=== PATIENT | female | born 1945 | race Caucasian/White ===

== ENCOUNTER 2019-02-06 20:58 | Emergency (ER) | payer OTHER ==
[~2019-02-06] VITALS: Ht 160 cm; Wt 54.4 kg
[2019-02-06] MEDS ORDERED: ESCI10 PO (21:28)
[2019-02-06] MEDS ORDERED: TRAZ50 PO (21:28)
== END 2019-02-06 22:33 | disposition home or self-care (01) ==
LOC: ER 20:58
DX: S61.216A Laceration without foreign body of right little finger without damage to nail, initial encounter (principal); Z23 Encounter for immunization; Z79.899 Other long term (current) drug therapy; W01.0XXA Fall on same level from slipping, tripping and stumbling without subsequent striking against object, initial encounter
CPT/HCPCS: 12001; 90471; 90714; 99282-25

== ENCOUNTER 2022-01-03 12:07 | Day surgery (SDC) | payer OTHER ==
[~2022-01-03] VITALS: Ht 160 cm; Wt 51.5 kg
[~2022-01-03 12:07] MED LIST: ALENDRONATE SOD35 MG PO; CALCIUM 600 MG1 EA19 PO; Cyclobenzaprine5 MG PO; DIPH25; ESCI10 PO; MELA3 PO; METO25ER PO; MULVITA PO; PYRI100 PO; TOCO1000 PO; TRAZ50 PO; TURMERIC500 M2 PO; VITAMIN D3-ALO1 EACH PO; Vitamin B-12100 MCG PO; ZOLOFT25 MG PO; ZYRTEC10 M4 PO
--- NOTE | 2022-01-03 13:06 | NUR ---
01/03/22 1306 Ana Blackwell History, Chart, Medications and Allergies reviewed before start of procedure. Patient confirms NPO status and agrees with scheduled surgery. 3-LEAD EKG REVIEWED WITH PHYSICIAN PRIOR TO START OF PROCEDURE. MONITOR INTACT WITH CONTINUOUS PULSE OXIMETRY AND INTERMITTENT BP. PATIENT DETERMINED TO BE ASA APPROPRIATE FOR PROPOFOL SEDATION PRIOR TO START OF PROCEDURE BY .
--- NOTE | 2022-01-03 14:18 | NUR ---
PT SITTING UP IN BED, REPOSITIONING SELF IN BED. PT REQUESTED AND TOLERATING PO FLUIDS AND FOOD. REQUESTING TO GO HOME.
--- NOTE | 2022-01-03 14:43 | NUR ---
Patient up to Ambulate independently. Gait steady. Discharge instructions reviewed with patient. Patient verbalizes understanding. Copy given to patient to take home. Patient States Post-Procedure ride home has been arranged. Discharged via wheelchair to private car for ride home. ALL BELONGINGS RETURNED TO PATIENT THAT [facility].
== END 2022-01-03 22:51 | disposition home or self-care (01) ==
LOC: ORSCMMR 12:07
PROVIDERS: Student in an Organized Health Care Education/Training Program
PROC: 0DBH8ZX Excision of Cecum, Via Natural or Artificial Opening Endoscopic, Diagnostic (ICD-10-PCS; principal; 2022-01-03 13:30)
DX: K59.09 Other constipation (principal); K63.5 Polyp of colon; K57.30 Diverticulosis of large intestine without perforation or abscess without bleeding; F41.9 Anxiety disorder, unspecified; I48.91 Unspecified atrial fibrillation; I10 Essential (primary) hypertension; F43.10 Post-traumatic stress disorder, unspecified; Z79.899 Other long term (current) drug therapy
CPT/HCPCS: 88305; J2704; J7120

== ENCOUNTER 2022-11-23 14:55 | Emergency (ER) | payer OTHER ==
[~2022-11-23] VITALS: Ht 160 cm; Wt 56.7 kg
[2022-11-23] MEDS ORDERED: HYDR1TAB94 PO (18:07)
== END 2022-11-23 19:00 | disposition home or self-care (01) ==
LOC: ER 14:55
DX: S42.202A Unspecified fracture of upper end of left humerus, initial encounter for closed fracture (principal); W18.30XA Fall on same level, unspecified, initial encounter; Z79.899 Other long term (current) drug therapy; S42.212A Unspecified displaced fracture of surgical neck of left humerus, initial encounter for closed fracture
CPT/HCPCS: 73030; 73060; 99283-25; A9270

== ENCOUNTER 2024-08-23 15:17 | Emergency (ER) | payer OTHER ==
[~2024-08-23] VITALS: Ht 157.5 cm; Wt 56.2 kg
[~2024-08-23 15:17] MED LIST changes: +HYDR1TAB94 PO
[2024-08-23] MEDS ORDERED: OxyCODONE 5 mg/Acetamin 325 mg TABLET PO ONE (17:45)
[2024-08-23] MEDS ORDERED: Ketorolac Tromethamine 15mg Vial IM ONE (17:45)
[2024-08-23] MEDS ORDERED: IBUP600 PO (17:49)
[2024-08-23] MEDS ORDERED: ACET500 PO (17:49)
[2024-08-23] MEDS ORDERED: PERCOCET 10-321 EA13 PO (17:50)
[2024-08-23] MEDS ORDERED: Ketorolac Tromethamine 15mg Vial IV ONE (17:50)
[2024-08-23 18:06] VITALS: BP 179/76
== END 2024-08-23 18:06 | disposition home or self-care (01) ==
LOC: ER 15:17
DX: S82.854A Nondisplaced trimalleolar fracture of right lower leg, initial encounter for closed fracture (principal); W54.1XXA Struck by dog, initial encounter; Z79.899 Other long term (current) drug therapy; Z91.011 Allergy to milk products; Z91.048 Other nonmedicinal substance allergy status
CPT/HCPCS: 73610; 96374; 99283-25; A9270; J1885

== ENCOUNTER 2024-10-10 06:17 | Day surgery (SDC) | payer OTHER ==
[~2024-10-10] VITALS: Ht 157.5 cm; Wt 56.6 kg
[~2024-10-10 06:17] MED LIST changes: +ACET500 PO; +IBUP600 PO; +PERCOCET 10-321 EA13 PO
[2024-10-10] MEDS ORDERED: Rocuronium Bromide 10 MG/ML 5ML Injection IV ONE (06:20)
[2024-10-10] MEDS ORDERED: propofoL 20 ML IV ONE (06:20)
[2024-10-10] MEDS ORDERED: Ondansetron HCl 2 MG / ML 2ML Vial ONE (06:20)
[2024-10-10] MEDS ORDERED: Dexamethasone Sod Phos 10 MG/ML 1ML VIAL ONE (06:20)
[2024-10-10] MEDS ORDERED: Bupivacaine 0.5% HCl 5 MG/ML 30MLVIAL ONE (06:24)
[2024-10-10] MEDS ORDERED: Midazolam HCl 1MG / ML 2ML Vial ONE (06:24)
[2024-10-10] MEDS ORDERED: CeFAZolin Sodium 2,000 MG VIAL ONE (06:33)
[2024-10-10] MEDS ORDERED: Lactated Ringer's 1,000 ML IV ONE ×3 (06:33→10:24)
[2024-10-10] MEDS ORDERED: OXYC5 PO (06:45)
[2024-10-10] MEDS ORDERED: FISH OIL (06:46)
[2024-10-10] MEDS ORDERED: [UNRECOGNIZED DRUG - REMARK] (06:47)
[2024-10-10] MEDS ORDERED: Ropivacaine 0.5% HCL/PF 5 MG/ML 30ML Vial ONE (07:04)
[2024-10-10] MEDS ORDERED: EPINEPhrine HCl 1 MG/ML 1ML Amp ONE (07:04)
--- NOTE | 2024-10-10 07:10 | NUR ---
10/10/24 0710 Lydia Oropeza TIME OUT AT 0708 TO VERIFY CORRECT PT. SITE LOCATION AND ALLERIGES. PT ELECTED TO PROCEED. DR. CAMACHO PROVIDED RELAXING MEDICATION.VS REANNAED.
[2024-10-10] MEDS ORDERED: Labetalol HCL 5 MG/ML 4ML Injection (Single Dose) ONE (09:17)
--- NOTE | 2024-10-10 09:25 | NUR ---
10/10/24 0925 Drake Collins, LABETALOL ADMIN 10MG PER DR DUTTON FOR ELEVATED BP. SUCTION GIVEN. PT FOLLOWING COMMANDS. 4ML O2 VIA NC ON PATIENT.
[2024-10-10] MEDS ORDERED: OxyCODONE 5 mg/Acetamin 325 mg TABLET ONE (09:45)
[2024-10-10 09:53] VITALS: BP 146/78
== END 2024-10-10 10:47 | disposition home or self-care (01) ==
LOC: ORSCSDS 06:17
DX: S82.851A Displaced trimalleolar fracture of right lower leg, initial encounter for closed fracture (principal); F41.9 Anxiety disorder, unspecified; I10 Essential (primary) hypertension; Z79.899 Other long term (current) drug therapy
CPT/HCPCS: A9270; C1713; C1769; J0171; J0690; J1100; J2250; J2405; J2704; J2795; J7120

== ENCOUNTER 2025-02-11 11:04 | Day surgery (SDC) | payer OTHER ==
[~2025-02-11] VITALS: Ht 157.5 cm; Wt 58.2 kg
[~2025-02-11 11:04] MED LIST changes: +Balanced Salt Epinephrine Irrigation Solution 500 mL IR SCH; +Diazepam 2 MG Tab PO PRN; +FISH OIL; +Lidocaine HCl/Pf 1% 5 ML VIAL XX SCH; +Moxifloxacin HCL 0.5 MG/0.1 ML 0.4MLSYR LEFTEYE SCH; +OXYC5 PO; +Ondansetron 4 MG SoluTab MM PRN; +PHENYLEPHRINE\\TROPICAMIDE\\TETRACAINE OPHTHALMIC DILATING SOLN LEFTEYE PRN; +Povidone-Iodine 450 DROP/30 ML Solution LEFTEYE SCH; +Povidone-Iodine 450 DROP/30 ML Solution ONE; +Tetracaine HCl/Pf 0.5% Opth Soln 4 ml ONE; +[UNRECOGNIZED DRUG - REMARK]; +diazePAM 5 MG,diazePAM 2 MG PO SCH
[2025-02-11] MEDS ORDERED: Diazepam 2 MG Tab ONE (11:27)
[2025-02-11] MEDS ORDERED: Diazepam 5 MG Tab ONE (11:28)
--- NOTE | 2025-02-11 11:56 | NUR ---
02/11/25 1156 Haley Chavarria PER REPORT FROM YONNY,RN 7 MG VALIUM GIVEN PO AT 1140. ANXIETY INITAL 10/10 PER PATIENT REPORT 1142: TETRACAINE PER ORDERS 1143: PLEDGET PER ORDERS
--- NOTE | 2025-02-11 12:07 | NUR ---
02/11/25 1207 Kell Ovalle VITALS AT 1206 BP: 147/65 P: 70 O2: 99% WITH 10 LITERS OF BLOW BY OXYGEN
[2025-02-11 12:43] VITALS: BP 160/73
== END 2025-02-11 12:41 | disposition home or self-care (01) ==
LOC: ORSCSDS 11:04
PROVIDERS: Student in an Organized Health Care Education/Training Program
PROC: 08RK3JZ Replacement of Left Lens with Synthetic Substitute, Percutaneous Approach (ICD-10-PCS; principal; 2025-02-11 12:30)
DX: H25.812 Combined forms of age-related cataract, left eye (principal); H04.123 Dry eye syndrome of bilateral lacrimal glands; H40.009 Preglaucoma, unspecified, unspecified eye; Z96.1 Presence of intraocular lens; H43.812 Vitreous degeneration, left eye; I10 Essential (primary) hypertension; F41.9 Anxiety disorder, unspecified; Z79.899 Other long term (current) drug therapy
CPT/HCPCS: A9270; V2632